=== PATIENT | female | born 1990 | race Caucasian/White ===

== ENCOUNTER 2018-08-10 15:18 | Emergency (ER) | payer BC ==
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
[2018-08-10] MEDS ORDERED: Acetaminophen 325 MG Tab PO ONE (16:26)
[2018-08-10] MEDS ORDERED: Diphtheria,Pertussis(Acell),Tetanus Vaccine 0.5 ML SDV IM ONE (16:27)
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
--- NOTE | 2018-08-10 17:19 | CRLCR ---
INDICATION: Fall. FINDINGS: Three views the right hand show no evidence of acute fracture or dislocation. No other bony or soft tissue abnormalities identified. Dictated by Tarun Knight MD @ 08/10/2018 5:13:36 PM Dictated by: Tarun Knight MD @ 08/10/2018 17:17:16 (Electronically Signed)
== END 2018-08-10 18:42 | disposition home or self-care (01) ==
LOC: JP.ED 15:18
DX: S01.511A Laceration without foreign body of lip, initial encounter (principal); S60.211A Contusion of right wrist, initial encounter; S05.11XA Contusion of eyeball and orbital tissues, right eye, initial encounter; S80.211A Abrasion, right knee, initial encounter; M25.511 Pain in right shoulder; S69.90XA Unspecified injury of unspecified wrist, hand and finger(s), initial encounter; S89.91XA Unspecified injury of right lower leg, initial encounter; S99.929A Unspecified injury of unspecified foot, initial encounter; K08.89 Other specified disorders of teeth and supporting structures; V18.9XXA Unspecified pedal cyclist injured in noncollision transport accident in traffic accident, initial encounter; Z79.899 Other long term (current) drug therapy; Z23 Encounter for immunization
CPT/HCPCS: 71046; 73130-RT; 73562-RT; 90471; 90715; 99283-25; A9270-GY